=== PATIENT | female | born 1950 | race Caucasian/White ===

== ENCOUNTER → 2018-05-02 | Outpatient (CLI) | payer OTHER ==
[~2018-05-02] MED LIST: ADVAIR 250-501 EACH INH; ALDACTONE100 MG PO; ALDACTONE50 MG PO; AMBIEN 5 MG TABL5 M1 PO; ATIVAN1 MG PO; B12INJ IM; CHILDREN'S100 MG/5 M PER TUBE; CLONAZEPAM 1 MG1 M1 PO; DILAUDID 2 MG TA2 MG PO; DIPHENHIST12.5 MG/5 PER TUBE; DIPHENOXYLATE/ATROPI PO; FLAGYL500 MG PO; FUROSEMIDE 20 M20 MG PER TUBE; GEMFIBROZIL 60600 MG PER TUBE; LASIX 80 MG TAB80 MG PO; LEVOTHYROXINE 0.1 MG PO; LIDODERM 5%1 PATC1 TRANSDERM; MOTRIN IB200 M1 PO; NORCO 5-325 TA1 EAC1 PO; OMEPRAZOLE 20 M20 M1 PO; PAXIL10 MG; PERCOCET 5-3251 EACH PO; POTASSIUM20 PER TUBE; PROBIOTIC1 EAC1 PO; REGLAN 5 MG TAB5 MG PO; SYNTHROID25 MCG PO; TRANSDERM-SCO1 PATC1 TD; TRANSDERM-SCOP1 EACH TD; TRAZODONE HCL100 MG PO; VITAMIN B-1100 M1 PO; VITAMIN D1000 UNI1 PO; VIVELLE-DOT1 EAC1 TD; ZOLOFT50 MG PO
--- NOTE | 2018-05-02 15:55 | 2DMMODE ---
[place] [address] 2 D/M-MODE ECHOCARDIOGRAM Name: AMY HAQUE Room: [facility]#: [id number] Admission: 05/02/18 Attend Phys: Petros Armenta MD Discharge: Date of : 52 Date of Service: 05/02/18 1554 Report #: [id number] THIS REPORT FOR: //name// APPROVED REPORT Study performed: 05/02/2018 14:08:10 EXAM: Comprehensive 2D, Doppler, and color-flow Echocardiogram Patient Location: Out-Patient Status: routine BSA: 1.93 HR: 86 bpm BP: 102/62 mmHg Other Information Study Quality: Fair Technically limited study due to Ribs close together. Indications Dyspnea 2D Dimensions IVSd: 10.84 (7-11mm) LVOT Diam: 20.70 (18-24mm) LVDd: 42.28 mm PWd: 9.59 (7-11mm) Ascending Ao: 33.39 (22-36mm) LVDs: 27.65 (25-40mm) Aortic Root: 22.56 mm Volumes Left Atrial Volume (Systole) LA ESV Index: 14.00 mL/m2 Aortic Valve AoV Peak Rafa.: 1.27 m/s AO Peak Gr.: 6.46 mmHg LVOT Max P.64 mmHg AO Mean Gr.: 3.16 mmHg LVOT Mean P.86 mmHg LVOT Max V: 0.95 m/s AO V2 VTI: 22.42 cm LVOT Mean V: 0.62 m/s JANEY (VTI): 2.59 cm2 LVOT V1 VTI: 17.27 cm Mitral Valve E/A Ratio: 0.85 MV Decel. Time: 296.29 [place] [address] 2 D/M-MODE ECHOCARDIOGRAM Name: AMY HAQUE Room: [facility]#: [id number] Admission: 05/02/18 Attend Phys: Petros Armenta MD Discharge: Date of : 52 Date of Service: 05/02/18 1554 Report #: [id number] MV E Max Rafa.: 0.60 m/s MV PHT: 85.92 ms MVA (PHT): 2.56 cm2 TDI E/Lateral E': 8.57 E/Medial E': 6.67 Medial E' Rafa.: 0.09 m/s Lateral E' Rafa.: 0.07 m/s Pulmonary Valve PV Peak Rafa.: 1.02 m/s PV Peak Gr.: 4.15 mmHg Tricuspid Valve RAP Estimate: 5.00 mmHg TR Peak Gr.: 21.91 mmHg RVSP: 26.91 mmHg PA Pressure: 26.91 mmHg Left Ventricle The left ventricle is normal size. There is normal LV segmental wall motion. There is normal left ventricular wall thickness. Left ventricular systolic function is normal. The left ventricular ejection fraction is within the normal range. LVEF is 55-60%. Right Ventricle The right ventricle is normal size. The right ventricular systolic function is normal. Atria The left atrium size is normal. The right atrium size is normal. Aortic Valve The aortic valve is normal in structure. No aortic regurgitation is present. There is no aortic valvular stenosis. Mitral Valve The mitral valve is normal in structure. There is no mitral valve regurgitation noted. No evidence of mitral valve stenosis. Tricuspid Valve The tricuspid valve is normal in structure. Mild tricuspid regurgitation. Pulmonic Valve The pulmonary valve is normal in structure. There is no pulmonic [place] [address] 2 D/M-MODE ECHOCARDIOGRAM Name: REYES GONSALVESAMY Room: [facility]#: [id number] Admission: 05/02/18 Attend Phys: Petros Armenta MD Discharge: Date of : 52 Date of Service: 05/02/18 1554 Report #: [id number] Great Vessels The aortic root is normal in size. IVC is normal in size and collapses >50% with inspiration. Pericardium There is no pericardial effusion. <Conclusion> The left ventricle is normal size. There is normal left ventricular wall thickness. Left ventricular systolic function is normal. The left ventricular ejection fraction is within the normal range. LVEF is 55-60%. The right ventricle is normal size. The left atrium size is normal. The aortic valve is normal in structure. The mitral valve is normal in structure. The tricuspid valve is normal in structure. IVC is normal in size and collapses >50% with inspiration. There is no pericardial effusion. There is normal LV segmental wall motion. <ELECTRONICALLY SIGNED> By: Serge Wesley MD, FACC 05/02/18 1554 1554 1554 Serge Wesley MD, FACC /INF
== END ==
LOC: M.CRD 13:45
DX: J98.4 Other disorders of lung (principal); R06.02 Shortness of breath; Z98.84 Bariatric surgery status

== ENCOUNTER → 2018-08-08 | Day surgery (SDC) | payer OTHER ==
[~2018-08-08] MED LIST changes: +BRINTELLIX20 MG PO; +DUREZOL5 ML OPHTHALMIC; +ETODOLAC 400 M400 M1 PO; +ILEVRO1.7 ML OPHTHALMIC; +LYRICA 50 MG50 MG PO; +MAGNESIUM250 M1 PO; +METHENAMINE1 GM PER TUBE; +NYSTATIN100000 UNI SW&SWALLOW; +OCUFLOX5 ML OPHTHALMIC; +ONDANSETRON HCL4 M2 PO; +POTASSIUM CHLORIDE PER TUBE; +PROTONIX40 M1 PO; +SINGULAIR 10 MG10 M1 PO; +SYNTHROID88 MCG PO; +VENTOLIN HFA 1818 GM INH; +VITAMIN D50000 UNIT PO; +XANAX1 MG PO
--- NOTE | ~2018-08-08 | PROC ---
[facility] [address] [place] [address] PROCEDURE REPORT Name: AMY HAQUE Room: [facility].R.#: [id number] Admission: 08/08/18 Attend Phys: Rob Delacruz MD Discharge: Date of : 52 Report #: [id number] THIS REPORT FOR: //name// For GI report, please see the Provation report in Perceptive 7 content. By: [facility] Records Staff SYDNI /GAY
[2018-08-08 09:17] LABS: HEMATOCRIT 36.6 % (37.0-47.0); HEMOGLOBIN 11.9 gm/dL (12.0-15.0); MCH 29.2 pg (26.0-34.0); MCHC 32.5 g/dL (28.0-37.0); MCV 89.9 fL (80.0-100.0); MPV 9.8 fl. (7.2-11.1); RBC 4.07 mil/uL (4.20-5.00); RDW-CV 15.4 % (10.5-14.5); WBC 6.5 thou/uL (4.0-11.0)
[2018-08-08 09:28] LABS: ALBUMIN 3.1 g/dL (3.4-5.0); CALCIUM 8.5 mg/dL (8.5-10.1); CREATININE 1.9 mg/dL (0.6-1.3); POTASSIUM 4.1 mmol/L (3.5-5.1); TOTAL BILIRUBIN 0.6 mg/dL (<0.1-1.0); TOTAL PROTEIN 7.6 g/dL (6.4-8.2)
--- NOTE | 2018-08-08 13:14 | EKG ---
[place] [address] ELECTROCARDIOGRAM REPORT Name: AMY HAQUE Room: [facility]#: [id number] Admission: 08/08/18 Attend Phys: Rob Delacruz MD Discharge: Date of : 52 Report #: [id number] THIS REPORT FOR: //name// [facility] Test Date: 2018-08-08 Test Time: 09:14:04 Pat Name: AMY GONSALVES Department: Room: Gender: F [employer]: : 1950 Requested By: Rob Delacruz Order Number: [id number] Reading MD: Derik Alex Measurements Intervals [place] Rate: 63 P: 69 [place]: 189 QRS: 14 QRSD: 103 T: 57 QT: 413 QTc: 423 Interpretive Statements Sinus rhythm Probable left atrial enlargement Compared to ECG 02/11/2016 13:03:46 T-wave abnormality no longer present Electronically Signed On 08-08-2018 13:14:16 CDT by Derik Alex [email or web address] <ELECTRONICALLY SIGNED> By: Derik Alex MD, [facility] 08/08/18 1314 3 Derik Alex MD, [facility] /EPI
== END | disposition home or self-care (01) ==
LOC: M.SUR 08:52
PROVIDERS: Internal Medicine Gastroenterology
DX: K94.23 Gastrostomy malfunction (principal); K21.9 Gastro-esophageal reflux disease without esophagitis; K31.89 Other diseases of stomach and duodenum; E03.9 Hypothyroidism, unspecified; J45.909 Unspecified asthma, uncomplicated; F32.9 Major depressive disorder, single episode, unspecified; Z98.84 Bariatric surgery status; Z98.890 Other specified postprocedural states; Z79.899 Other long term (current) drug therapy; Z91.041 Radiographic dye allergy status; Z88.6 Allergy status to analgesic agent; Z88.8 Allergy status to other drugs, medicaments and biological substances

== ENCOUNTER 2018-09-03 10:15 | Inpatient (IN) | payer OTHER ==
[~2018-09-03] VITALS: Ht 177.8 cm; Wt 85.7 kg
--- NOTE | ~2018-09-03 | PROC ---
[address] [address] PROCEDURE REPORT Name: AMY HAQUE Room: [address] IN M.R.#: [id number] Admission: 09/03/18 Attend Phys: Olaf Salinas MD Discharge: 09/10/18 Date of : 52 Report #: [id number] THIS REPORT FOR: //name// CC: Olaf Baum DO DATE OF SERVICE: 09/05/2018 REFERRING PHYSICIAN: Dr. Olaf Salinas. PROCEDURE PERFORMED: Gastrostomy tube replacement. SEDATION USED: None. SPECIMEN RETRIEVED: One 20-Macanese x 1.7 cm NATALI-CHONG low-profile gastrostomy tube. INDICATIONS: The patient is a pleasant 68-year-old white female who was admitted to hospital with a partial small-bowel obstruction likely related to adhesions, who has had issues with her existing gastrostomy tube. Her existing gastrostomy tube appears to be too tight and it measures 20-Macanese x 1.7 cm. She is having some problems with induration and irritation around the outside of the tube and for this reason, she is now here for replacement of the tube with a new tube. Since [place] did not have any low-profile gastrostomy tubes, I brought a measuring device to determine the length of an acceptably low-profile gastrostomy tube. DESCRIPTION OF PROCEDURE: The procedure was performed at the patient's bedside. I deflated the balloon from the 20-Macanese x 1.7 cm existing low-profile gastrostomy tube and then used a measuring device to determine the length of an acceptable low-profile gastrostomy tube. I placed a measuring device through the stoma, inflated the balloon with 6 mL and then measured from the inside to the outside in the supine and semi-recumbent position. It appeared that a 2.5 cm tube will be an acceptable length. However, we do not have that size. Since I did not want to place the tube that was previously in place back into place, I then just placed a 20-Macanese balloon replacement tube through the existing stoma to keep it open. I will procure the correct size tube tomorrow and place it through existing stoma tomorrow at her bedside. She did not need an upper endoscopy to replace this tube. IMPRESSION: [place] [address] PROCEDURE REPORT Name: AMY HAQUE Room: [address] IN .R.#: [id number] Admission: 09/03/18 Attend Phys: Olaf Salinas MD Discharge: 09/10/18 Date of : 52 Report #: [id number] 1. Successful removal of a 20-Macanese x 1.7 cm low-profile gastrostomy tube. 2. Measuring device used to determine length of an acceptable low-profile gastrostomy tube and it appears that 20-Macanese x 2.5 cm tube will be acceptable. 3. Successful placement of a 20-Macanese balloon replacement tube through the existing stoma. RECOMMENDATIONS: 1. I will procure the correct size tube tomorrow and bring it and place it tomorrow through existing stoma. 2. Okay to advance the patient's diet to a soft diet as tolerated for partial small-bowel obstruction. I have discussed these plans with the patient as well as her and they are agreeable to the same. By: [id number] Diaz DO /priscila
--- NOTE | ~2018-09-03 | PROC ---
[address] [address] PROCEDURE REPORT Name: AMY HAQUE Room: [address] IN M.R.#: [id number] Admission: 09/03/18 Attend Phys: Olaf Salinas MD Discharge: 09/10/18 Date of : 52 Report #: [id number] THIS REPORT FOR: //name// CC: Olaf Baum DO DATE OF SERVICE: 09/06/2018 REFERRING PHYSICIAN: Olaf Salinas MD. PROCEDURE PERFORMED: Removal of 20-Guatemalan balloon replacement tube followed by placement of a 20-Guatemalan x 2.5 cm NATALI-CHONG low profile gastrostomy tube. SEDATION USED: None. SPECIMEN RETRIEVED: One 20-Guatemalan balloon replacement tube. INDICATIONS: The patient is a pleasant 68-year-old white female who is currently admitted to hospital with partial small-bowel obstruction and she was having difficulties with her existing low profile button PEG. It was actually removed yesterday and in place of it, a 20-Guatemalan balloon replacement tube was placed and secured into position. I used a measuring device prior to placement of the same and determined that a 20-Guatemalan x 2.5 cm low profile button PEG would work further. She is now here for replacement of the same. Once a 20-Guatemalan balloon replacement tube was removed and the balloon deflated, 20-Guatemalan x 2.5 cm NATALI-CHONG low profile gastrostomy tube was placed through existing stoma and the balloon was inflated with 6 mL. It appeared to be tight enough and there did not appear to be any issues related to the same. She tolerated the procedure without apparent complication. IMPRESSION: 1. Successful removal of 20-Guatemalan balloon replacement tube. 2. Successful placement of 20-Guatemalan x 2.5 cm NATALI-CHONG low profile gastrostomy tube through the existing stoma without complication. RECOMMENDATIONS: 1. Begin using the tube once she feels if she can tolerate feedings. 2. The patient states she has postprandial abdominal fullness after trying to eat yesterday and for this reason, I have recommended she undergo a noncontrast CT scan of the abdomen and pelvis to better evaluate her small bowel. I do not think she would be able to drink anything for small [place] [address] PROCEDURE REPORT Name: AMY HAQUE Room: [address] IN ..#: [id number] Admission: 09/03/18 Attend Phys: Olaf Salinas MD Discharge: 09/10/18 Date of : 52 Report #: [id number] and I did not want to add anything to her GI tract in case she has evidence of continuous small-bowel obstruction. 3. So far she has made without having to have an NG tube placed as I previously noted. If it is likely that she needs an NG tube, it will likely need to be placed endoscopically because of her altered anatomy. 4. We will order a CT scan today and evaluate the findings from the same. 5. With regards to gastrostomy tube replacement, all future gastrostomy tube placements should be scheduled at [facility] where they have a low profile gastrostomy tubes and we will need to make sure that they have a 20-Guatemalan x 2.5 cm low profile NATALI-CHONG gastrostomy tube in stock before scheduling for replacement of the same. I have discussed this with the patient as well and she is agreeable to the same. By: [id number] Diaz DO /priscila
[2018-09-03 10:15] VITALS: BP 143/71
[~2018-09-03 10:15] MED LIST changes: -LIDODERM 5%1 PATC1 TRANSDERM; +Lidoderm 5% Patch TRANSDERM
[2018-09-03] MEDS ORDERED: LOMOTIL TABLET1 EACH PO (10:36)
[2018-09-03] MEDS ORDERED: ESZOPICLONE3 MG PO (10:36)
[2018-09-03] MEDS ORDERED: MEDROLDOSEPACK PO (10:37)
[2018-09-03] MEDS ORDERED: PROBIOTIC1 EAC1 PO (10:37)
[2018-09-03] MEDS ORDERED: OSMOLITE PO (10:37)
[2018-09-03 11:00] LABS: URINE BLOOD NEGATIVE (Negative); URINE CLARITY CLEAR; URINE COLOR YELLOW; URINE GLUCOSE-RANDOM NEGATIVE (Negative); URINE KETONES NEGATIVE (Negative); URINE LEUKOCYTES-REFLEX NEGATIVE (Negative); URINE NITRITE-REFLEX NEGATIVE (Negative); URINE PROTEIN NEGATIVE (Negative); URINE UROBILINOGEN 0.2 E.U./dl (0.2-1.0)
[2018-09-03 11:02] LABS: ICTOTEST (BILI CONFIRMATORY) Positive (Negative); URINE BILIRUBIN 3+ (Negative)
[2018-09-03 11:03] LABS: HEMATOCRIT 41.2 % (37.0-47.0); HEMOGLOBIN 13.7 gm/dL (12.0-15.0); MCH 29.8 pg (26.0-34.0); MCHC 33.2 g/dL (28.0-37.0); MCV 89.7 fL (80.0-100.0); MPV 10.3 fl. (7.2-11.1); NUCLEATED RBCS 0 /100WBC; PLATELET COUNT* 221 thou/uL (150-400); RBC 4.59 mil/uL (4.20-5.00); RDW-CV 15.1 % (10.5-14.5); WBC 10.3 thou/uL (4.0-11.0)
[2018-09-03 11:09] LABS: PROTIME 10.3 Seconds (9.20-11.50)
[2018-09-03 11:10] LABS: ANION GAP 13 mmol/L (7-16); BUN 49 mg/dL (7-18); CALCIUM 8.4 mg/dL (8.5-10.1); CHLORIDE 103 mmol/L (98-107); CO2 27 mmol/L (21-32); GLUCOSE 148 mg/dL (70-99); POTASSIUM 3.9 mmol/L (3.5-5.1); SODIUM 143 mmol/L (136-145)
[2018-09-03 11:21] LABS: ALBUMIN 3.5 g/dL (3.4-5.0); ALKALINE PHOSPHATASE 117 U/L (46-116); LIPASE 1668 U/L (73-393); MAGNESIUM 2.3 mg/dL (1.8-2.4); NT-PRO BRAIN NAT PEPTIDE 102 pg/mL (<300); SGOT 17 U/L (15-37); SGPT 13 U/L (30-65); TOTAL BILIRUBIN 0.8 mg/dL (<0.1-1.0); TOTAL PROTEIN 8.1 g/dL (6.4-8.2); TROPONIN-I LEVEL <0.06 ng/mL (<0.06)
[2018-09-03 11:22] LABS: ABSOLUTE LYMPHOCYTES 0.8 thou/uL (0.8-5.3); ABSOLUTE MONOCYTES 0.2 thou/uL (0.0-1.2); ABSOLUTE NEUTROPHILS 9.3 thou/uL (1.6-8.1)
[2018-09-03 11:23] LABS: ANISOCYTOSIS 1+; PLATELET ESTIMATE ADEQUATE; POIKILOCYTOSIS 1+
[2018-09-03 13:39] LABS: AMP/METHAMP Negative (Negative); BARBITURATES Negative (Negative); BENZODIAZEPINES POSITIVE (Negative); COCAINE Negative (Negative); METHADONE Negative (Negative); OPIATES POSITIVE (Negative); PCP Negative (Negative); THC POSITIVE (Negative)
[2018-09-03 14:00] VITALS: BP 127/50
[2018-09-03 14:08] VITALS: BP 129/64
--- NOTE | 2018-09-03 14:30 | NUR ---
ER ADMIT TO ROOM 208 VIA CART. ADMISSION ASSESSMENT COMPTETE, DEFER TO COMPUTER CHARTING. 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 DENIES PAIN, NAUSEA OR ANY DISCOMFORT AT THIS TIME. ORIENTED TO ROOM/CALL LIGHT AND INTRODUCED TO PLAN OF CARE ALONG WITH SAFETY - CALLING FOR ASSIST WHEN GETTING OUT OF BED - VERBALIZED UNDERSTANDING. AT BEDSIDE. WILL MONITOR.
--- NOTE | 2018-09-03 17:49 | NUR ---
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 DROWSY BUT ORIENTED. REMAINS NPO PER ORDERS, IV FLUIDS INFUSING. IN BED WITH HOB ELEVATED, CALL LIGHT WITHIN REACH. NO COMPLAINTS OF CHEST PAIN OR NAUSEA AT THIS TIME. CALL LIGHT WITHIN REACH. WILL CONTINUE WITH PLAN OF CARE.
[2018-09-03 20:00] VITALS: BP 89/51
[2018-09-04 00:01] VITALS: BP 91/41
[2018-09-04 04:00] VITALS: BP 85/45
[2018-09-04 04:54] LABS: ABSOLUTE LYMPHOCYTES 0.7 thou/uL (0.8-5.3); ABSOLUTE MONOCYTES 0.6 thou/uL (0.0-1.2); ABSOLUTE NEUTROPHILS 6.6 thou/uL (1.6-8.1); BASOPHILS 0.2 %; HEMATOCRIT 30.7 % (37.0-47.0); LYMPHOCYTES 8.6 %; MCH 30.1 pg (26.0-34.0); MCHC 33.3 g/dL (28.0-37.0); MCV 90.3 fL (80.0-100.0); MONOCYTES 8.2 %; MPV 10.4 fl. (7.2-11.1); NUCLEATED RBCS 0 /100WBC; PLATELET COUNT* 154 thou/uL (150-400); RDW-CV 15.4 % (10.5-14.5); WBC 7.9 thou/uL (4.0-11.0)
[2018-09-04 05:01] LABS: CALCIUM 7.2 mg/dL (8.5-10.1); CREATININE 1.3 mg/dL (0.6-1.3); POTASSIUM 3.5 mmol/L (3.5-5.1)
[2018-09-04 05:12] LABS: HEMOGLOBIN 10.2 gm/dL (12.0-15.0)
--- NOTE | 2018-09-04 07:52 | NUR ---
ASSUMED PT CARE AT 1930. ASSESSMENT COMPLETED CHARTED. ABLE TO MAKE NEEDS KNOWN. UP WITH STANDBY ASSIST. C/O CRAMPING IN ABDOMIN, GAVE PRN PAIN MEDICATIONS NEEDED. VSS. FLUIDS INFUSING PER P.O. C/O NAUSEA. WILL CONTINUE TO MONITOR.
[2018-09-04 08:15] VITALS: BP 96/46
[2018-09-04 12:29] VITALS: BP 91/38
[2018-09-04 15:38] VITALS: BP 139/74
--- NOTE | 2018-09-04 16:27 | NUR ---
ASSUMED CARE OF PATIENT AT 0730. ALERT AND ORIENTED X 4. VITAL SIGNS STABLE ON 2L O2 NASAL CANULA. SINUS RHYTHM ON MONITOR. AFEBRILE. PERRLA. UP WITH STAND BY ASSIST. IV PATENT WITH FLUIDS INFUSING. PAIN BEING MANAGED WITH IV MEDICATION. DENIES NAUSEA AT THIS TIME. PATIENT MADE MED SURG STATUS TODAY. TOLERATING CLEAR LIQUIDS AT THIS TIME. TO BE NPO AFTER MIDNIGHT FOR PROCEDURE TOMORROW. FALL PRECAUTIONS IN PLACE AND BED ALARM ON. BED LOCKED AND IN LOWEST POSITION. HOURLY ROUNDS MAINTINED THROUGHOUT THE SHIFT. CALL LIGHT WITHIN REACH. NURSING WILL CONTINUE TO MONITOR.
[2018-09-04 20:00] VITALS: BP 114/83
[2018-09-05] VITALS: BP 84/35
[2018-09-05 05:21] LABS: PREALBUMIN 12.4 mg/dL (18.0-35.7)
[2018-09-05 05:43] LABS: ALBUMIN 2.3 g/dL (3.4-5.0); CALCIUM 7.7 mg/dL (8.5-10.1); POTASSIUM 3.4 mmol/L (3.5-5.1); TOTAL BILIRUBIN 0.4 mg/dL (<0.1-1.0); TOTAL PROTEIN 5.6 g/dL (6.4-8.2)
--- NOTE | 2018-09-05 05:48 | NUR ---
ASSUMED PT CARE AT 1930. ASSESSMENT COMPLETED CHARTED. ABLE TO MAKE NEEDS KNOWN. UP AD SIMON IN ROOM. C/O PAIN AND CRAMPING IN ABDOMEN, GAVE PRN PAIN MEDICATION NEEDED. NPO SINCE MIDNIGHT FOR NEW GTUBE TODAY. PT UNABLE TO TAKE MOST MEDICATIONS DUE TO DAMAGED ESOPHAGUS SO WAITING FOR GTUBE PLACEMENT TO GIVE MEDICATION THROUGH IT. BP LOW DUE TO PAIN MEDICATION AND RESTING IN BED MOST OF THE NIGHT. WILL CONTINUE TO MONITOR.
--- NOTE | 2018-09-05 07:15 | NUR ---
CHANGE OF SHIFT, BEDSIDE REPORT GIVEN PATIENT SEEN AT BEDSIDE, IN BED ASLEEP ASSUMJED PATIENT CARE
[2018-09-05 08:00] VITALS: BP 107/39
--- NOTE | 2018-09-05 11:06 | NUR ---
Pt is A&O. Resides at home with her ex , ex is Pt's caregiver. Pt is independent with ADLs, but ex does provide supervision as needed. Ex cooks and drives, Pt does have a sewer tapper. Pt has a peg tube. Pt has a walker and wc that she can use as needed. Hx of outpt therapy at [facility], Pt was current up until recently. [facility]x of [facility]. Hx of skilled at [facility]. Pt's goal is to return home at ne, unsure if she will resume outpt therapy or if she wants HH, Pt will discuss with Dr. Mendez.
--- NOTE | 2018-09-05 12:34 | EKG ---
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
[2018-09-05 16:00] VITALS: BP 95/43
[2018-09-05 20:40] VITALS: BP 128/85
[2018-09-06] VITALS: BP 89/48
[2018-09-06 05:41] LABS: HEMATOCRIT 31.3 % (37.0-47.0); HEMOGLOBIN 10.3 gm/dL (12.0-15.0); MCH 29.8 pg (26.0-34.0); MCHC 32.9 g/dL (28.0-37.0); MCV 90.5 fL (80.0-100.0); RBC 3.46 mil/uL (4.20-5.00); RDW-CV 14.6 % (10.5-14.5); WBC 6.2 thou/uL (4.0-11.0)
[2018-09-06 06:11] LABS: ALBUMIN 2.5 g/dL (3.4-5.0); CALCIUM 8.1 mg/dL (8.5-10.1); MAGNESIUM 1.8 mg/dL (1.8-2.4); POTASSIUM 3.2 mmol/L (3.5-5.1); TOTAL BILIRUBIN 0.4 mg/dL (<0.1-1.0); TOTAL PROTEIN 6.2 g/dL (6.4-8.2)
[2018-09-06 07:40] VITALS: BP 102/49
--- NOTE | 2018-09-06 08:02 | NUR ---
PATIENT HAS SLEPT OFF AND ON DURING THE NIGHT, BUT RESTLESS AT TIMES. VSS ON RA, ALTHOUGH BP LOW DURING THE NIGHT AFTER GIVEN FENTANYL AND MEDS. FENTANYL AND DILAUDID WERE HELD D/T LOW BP. BP 110/48 THIS AM. MEDICATIONS CRUSHED AND GIVEN VIA PEG TUBE. NEW IV INSERTED IN RIGHT UPPER ARM-D5 1/2 NS @ 50ML/HR. PATIENT INSTRUCTED TO USE CALL LIGHT WHEN NEEDING ASSISTANCE. HOURLY ROUNDS MADE. WILL CONTINUE WITH PLAN OF CARE AND NURSING TO MONITOR.
[2018-09-06 15:10] VITALS: BP 110/60
--- NOTE | 2018-09-06 16:57 | NUR ---
ASSUMED CARE OF PATIENT AT APPROX 0730. ALERT AND ORIENTED X4. ASSESSMENT COMPLETED AND CHARTED. VSS ON ROOM AIR AIR. FLUIDS INFUSED ORDERED THROUGHOUT SHIFT. PAIN HAS BEEN MANAGED WITH IV FENTANYL. PILLS CRUSHED AND ADMINISTERED THROUGH PEG TUBE. PATIENT HAVING FOOD ORALLY WITHOUT ISSUE THIS SHIFT. DR HU CHANGED PEG TUBE AT BEDSIDE THIS MORNING. PATIENT UP WITH THERAPY TODAY AND PROGRESSED TOWARD GOALS. UP AD SIMON IN THE ROOM. CALL LIGHT WITHIN REACH, HOURLY ROUNDS COMPLETED, NURSING WILL CONTINUE TO MONITOR.
[2018-09-07 05:13] LABS: CALCIUM 8.2 mg/dL (8.5-10.1); CREATININE 1.3 mg/dL (0.6-1.3); MAGNESIUM 1.7 mg/dL (1.8-2.4); POTASSIUM 3.6 mmol/L (3.5-5.1)
--- NOTE | 2018-09-07 06:12 | NUR ---
PT REMAINED ALERT AND ORIENTED. VITALS, SpO2 STABLE RA. PO MEDS CRUSHED AND GIVEN THROUGH PEG TUBE. STOMA SITE CLEAN AND INTACT. PAIN CONTROLLED WITH DILAUDID AND FENTANYL. ZOFRAN GIVEN PER PT REQUEST. ELECTROLYTE REPLACEMENT IN PROGRESS. PT STATED HAVING LOOSE STOOL OVER NIGHT. NOT SEEN BY NURSING. WILL CONTINUE TO MONITOR.
[2018-09-07 09:00] VITALS: BP 100/60
[2018-09-07 09:04] LABS: CALCIUM 7.8 mg/dL (8.5-10.1); CREATININE 1.4 mg/dL (0.6-1.3); MAGNESIUM 1.8 mg/dL (1.8-2.4); POTASSIUM 3.2 mmol/L (3.5-5.1)
[2018-09-07 15:30] VITALS: BP 106/52
--- NOTE | 2018-09-07 17:04 | NUR ---
pt remained alert and oriented. pt resting in room. zofran and pain meds given as ordered. tube feedings restarted. pt controlling rate and amount due to fear of going to much to fast. fall risk precautions in place. hourly rounding completed. will continue to monitor.
[2018-09-07 21:30] VITALS: BP 107/63
--- NOTE | 2018-09-08 05:15 | NUR ---
PT REMAINED ALERT AND ORIENTED. VITALS STABLE RA. MEDS GIVEN ORDERED THROUGH PEG TUBE. RATE STARTED AT 15 ML/HR BY DAYSHIFT AND INCREASED OVER NIGHT UP TO 50 ML/HR PER PT REQUEST AND SHE TOLERATED. NEW IV INSERTED DUE TO LEAKAGE. ELECTROLYTE REPLACEMENT IN PROGRESS. PT AMBULATED THE [facility] AT [facility]. WILL CONTINUE TO MONITOR.
[2018-09-08 08:00] VITALS: BP 99/50
[2018-09-08 09:02] LABS: MAGNESIUM 1.8 mg/dL (1.8-2.4)
[2018-09-08 09:04] LABS: POTASSIUM 4.2 mmol/L (3.5-5.1)
[2018-09-08 16:00] VITALS: BP 151/76
--- NOTE | 2018-09-08 18:36 | NUR ---
PT A&Ox4. VITALS STABLE. ON RA. PAIN CONTROLLED WITH DILAUDID. NAUSEA CONTROLLED WITH ZOFRAN. IV PATENT, SL. FEEDING TUBING STARTING AT 1900. UP AD SIMON. CALL LIGHT WITHIN PLACE. WILL CONTINUE TO MONITOR.
[2018-09-08 20:20] VITALS: BP 105/60
[2018-09-09 03:45] LABS: HEMATOCRIT 28.8 % (37.0-47.0); HEMOGLOBIN 9.8 gm/dL (12.0-15.0); MCH 30.3 pg (26.0-34.0); MCHC 33.9 g/dL (28.0-37.0); MCV 89.3 fL (80.0-100.0); MPV 10.1 fl. (7.2-11.1); RBC 3.22 mil/uL (4.20-5.00); RDW-CV 14.9 % (10.5-14.5); WBC 4.5 thou/uL (4.0-11.0)
[2018-09-09 04:03] LABS: CALCIUM 8.4 mg/dL (8.5-10.1); CREATININE 1.5 mg/dL (0.6-1.3); POTASSIUM 4.4 mmol/L (3.5-5.1)
--- NOTE | 2018-09-09 07:30 | NUR ---
Alert and oriented x 4. She has been getting her meds crushed through pegtube. She is tolerating fiber restricted diet. She has slept intermittenly. Pain controlled well with oral dilaudid.
[2018-09-09 08:00] VITALS: BP 108/39
--- NOTE | 2018-09-09 13:46 | NUR ---
SPOKE WITH PT.BRIEFLY SHE HAS BEEN NAUSEATED. STATED SHE DID NOT FEEL SHE WOULD HAVE DISCHARGE NEEDS.
[2018-09-09 15:32] VITALS: BP 129/83
--- NOTE | 2018-09-09 16:30 | NUR ---
ASSUMED CARE OF PATIENT AT 1100. ALERT AND ORIENTED X4. ASSESSMENT CHARTED BY FARHAD COPE ON ROOM AIR. PAIN MANAGED WITH ORAL DILAUDID. PATIENT HAVING SOME COMPLAINTS OF NAUSEA DURING SMALL BOWEL FOLLOW THROUGH SERIES, WHICH SHOWS RESOLVING SBO. PATIENT UP WITH THERAPI AND PROGRESSING TOWARD GOALS. PATIENT IS CLEARED TO GO HOME, DISCUSSION WITH PATIENT AND ABOUT MAKING PREPARATION TO DISCHAGE. HOURLY ROUNDS COMPLETED, CALL LIGHT WITHIN REACH, NURSING WILL CONTINUE TO MONITOR.
[2018-09-09 20:00] VITALS: BP 124/57
[2018-09-10 08:25] VITALS: BP 117/56
--- NOTE | 2018-09-10 12:32 | CON ---
[facility] [address] [place] [address] CONSULTATION Name: AMY HAQUE Room: [address] M.R.#: [id number] Admission: 09/03/18 Attend Phys: Kimmy Salinas MD Discharge: Date of : 52 Report #: [id number] THIS REPORT FOR: //name// CC: KIMMY Baum DO DATE OF SERVICE: 09/04/2018 REFERRING PHYSICIAN: Kimmy Salinas M.D. REASON FOR CONSULTATION: Abdominal pain. IMPRESSION: 1. Abdominal pain associated with nausea, vomiting, diarrhea and abnormal CAT scan, compatible with a small bowel obstruction - suspect it is related to adhesions due to her history of multiple abdominal surgeries. 2. Elevated lipase, without any evidence of pancreatitis on CT scan - suspect false positive lipase due to small-bowel obstruction. 3. PEG tube malfunction with the patient's existing low-profile button PEG being too tight over her skin, causing irritation around the outside. 4. History of chronic tube feedings via a low-profile button PEG due to issues that the patient has with dysphagia. RECOMMENDATIONS: 1. I agree with the attempt for nonoperative management of her partial small-bowel obstruction. If, however, she gets into trouble with tolerating food, she may need to have an NG tube placed. I suspect this will require an EGD to place the tube due to her altered upper GI tract anatomy and I would not want to do so for the patient. 2. Her current gastrostomy tube appears to be too tight over her skin, so I will replace the existing gastrostomy tube with a longer tube and I will have to get this from [facility]'s GI lab. For future reference, future changes of this tube will need to be arranged to be done at [facility] GI lab, as we do not have any low-profile gastrostomy tubes here at [facility]. I have discussed these plans with the patient as well as her and they are agreeable to the same. HISTORY OF PRESENT ILLNESS: The patient is a pleasant 68-year-old white female, well known to me, who has had history of remote Kenneth shunt with reversal of the same and has had to be chronically fed through a tube mostly at night, with 4 cans of Fibersource through the night through a tube to her low-profile button tube. She was admitted to the hospital, however, with complaints of abdominal pain associated with nausea, vomiting and was seen through [place] [address] CONSULTATION Name: AMY HAQUE Room: [address] M.R.#: [id number] Admission: 09/03/18 Attend Phys: Kimmy Salinas MD Discharge: Date of : 52 Report #: [id number] with findings on CT scan of a probable small-bowel obstruction. She has not had any further nausea or vomiting at this point in time and is actually passing gas and some stool. She has already been seen in consultation by Surgery, who recommended nonoperative management in a hope that this will work for her. She is admitted to the hospital for further evaluation and treatment. ALLERGIES: HER ALLERGIES ARE MULTIPLE AND INCLUDE PERCOCET, CODEINE, IV CONTRAST DYE, HYDROCODONE, MANNITOL, FLAGYL, MORPHINE, OXYCODONE, TAPE AND RECLAST. MEDICATIONS: Include ofloxacin eyedrops as well as Ilevro eyedrops. She takes Lomotil p.r.n., nutritional supplement, probiotic, Advair, trazodone, furosemide, spironolactone, gemfibrozil, chronic hydromorphone 2 mg up to 3 times daily, estradiol, vitamin B12, levothyroxine, alprazolam, Etodolac, methenamine, ondansetron, vitamin D3, albuterol, pregabalin, pantoprazole, montelukast, Trintellix, magnesium and some another eyedrop called Durezol. PAST MEDICAL AND SURGICAL HISTORY: Remarkable for chronic arthritis and chronic pain syndrome. She has history of hypothyroidism, hyperlipidemia, anxiety and depression. She has had previous gastric bypass surgeries on her abdomen. She has a chronic indwelling low-profile NATALI-CHONG button PEG. She has had hemorrhoidectomy, kidney stone removal. SOCIAL HISTORY: She does not smoke; occasionally drinks alcohol. FAMILY HISTORY: Negative. PHYSICAL EXAMINATION: GENERAL: Revealed a 68-year-old white female, who is awake and alert. CARDIOPULMONARY EXAMINATION: Revealed a regular rate and rhythm. LUNGS: Clear. ABDOMEN: Soft. Her existing gastrostomy tube was certainly tight over her skin. There was some irritation on the outside, mostly maceration secondary to the tight-fitting tube. Her abdomen is not distended. She is passing gas and has normal bowel sounds. LABORATORY DATA: Her laboratory tests revealed white count of 7.9, hemoglobin 10.2, platelet count 154,000, MCV is 90.3 and RDW is 15.4. Her sodium is 144, potassium 3.5, chloride 108, bicarbonate 25, BUN 32 and creatinine 1.3. Her total bilirubin is 0.8, alkaline phosphatase 117, AST is 17 and ALT is 13. Albumin is 3.5. Her lipase on admission was 1668 and today, it is 91. CT scan of the abdomen and pelvis was reviewed from 09/03/2018, which revealed a normal-appearing liver. Gallbladder is absent. Her spleen, pancreas, adrenal glands and kidneys are normal. She has postoperative changes from previous gastric bypass with a gastrostomy tube noted within the stomach[place] [address] CONSULTATION Name: AMY HAQUE ASAF Room: [address] IN [facility]#: [id number] Admission: 09/03/18 Attend Phys: Kimmy Salinas MD Discharge: Date of : 52 Report #: [id number] moderate amount of debris within the stomach as well as small bowel loops proximally, which is significantly distended with air and debris. The distal small bowel appears to be decompressed. The colon was still decompressed as well. There were no inflammatory changes noted. She has had previous hysterectomy as well. DISCUSSION: At the present time, the patient appears to be doing well even without the need for an NG tube for partial small-bowel obstruction. We will continue to follow the patient while she is in the hospital and we will replace her gastrostomy tube tomorrow with a less tight low-profile button PEG. <ELECTRONICALLY SIGNED> By: Tyson Diaz DO 09/10/18 1232 1518 DO clarisa Reyes
[2018-09-10 12:51] VITALS: BP 117/56
--- NOTE | 2018-09-10 14:15 | NUR ---
0700 ASSUMED CARE OF PT. PT IN ROOM RESTING. AM MEDICATION GIVEN TO PT AND HER TO CRUSH AND ADMINISTER VIA PEG TUBE. PT IS A&OX4 AND ABLE TO MAKE NEEDS KNOW. EXPRESSES THAT SHE IS READY TO LEAVE AND GO HOME TODAY. PT HERE AND WILL TAKE HER HOME. HAS NO OTHER CONCERNS AT THIS TIME. WILL CONT TO MONITOR CALL LIGHT IN REACH
--- NOTE | 2018-09-10 14:20 | NUR ---
5479 PT DISCHARGED FROM ROOM 111 TO HOME VIA WHEELCHAIR ACCOMPANIED BY HER . TRANSPORTED BY PERSONAL VEHICLE. PT ABLE TO SELF TRANSFER TO THE VEHICLE.
== END 2018-09-10 13:45 | disposition home or self-care (01) | DRG 326 ==
LOC: M.ERS 10:15 → M.TBA-ER 12:02 → M.2W 12:02 → M.ORTHSURG 12:02 → M.2W 14:02 → M.ORTHSURG 09-06 12:24
PROVIDERS: Emergency Medicine Emergency Medical Services; Internal Medicine; Internal Medicine Gastroenterology; ADMIT Internal Medicine
PROC: 0DW63UZ Revision of Feeding Device in Stomach, Percutaneous Approach (ICD-10-PCS; principal; 2018-09-05)
PROC: 0DW64UZ Revision of Feeding Device in Stomach, Percutaneous Endoscopic Approach (ICD-10-PCS; 2018-09-06)
DX: K94.23 Gastrostomy malfunction (principal); J69.0 Pneumonitis due to inhalation of food and vomit; N17.0 Acute kidney failure with tubular necrosis; K85.90 Acute pancreatitis without necrosis or infection, unspecified; K56.609 Unspecified intestinal obstruction, unspecified as to partial versus complete obstruction; G93.40 Encephalopathy, unspecified; L03.311 Cellulitis of abdominal wall; K56.7 Ileus, unspecified; E03.9 Hypothyroidism, unspecified; I50.9 Heart failure, unspecified; Z77.22 Contact with and (suspected) exposure to environmental tobacco smoke (acute) (chronic); E86.9 Volume depletion, unspecified; F19.90 Other psychoactive substance use, unspecified, uncomplicated; G89.29 Other chronic pain; F32.9 Major depressive disorder, single episode, unspecified; Z90.710 Acquired absence of both cervix and uterus; Z87.442 Personal history of urinary calculi; Z88.8 Allergy status to other drugs, medicaments and biological substances; Z88.6 Allergy status to analgesic agent; Z95.1 Presence of aortocoronary bypass graft; Z91.041 Radiographic dye allergy status; Z90.49 Acquired absence of other specified parts of digestive tract; T40.2X5A Adverse effect of other opioids, initial encounter; Y92.89 Other specified places as the place of occurrence of the external cause

== ENCOUNTER → 2019-01-03 | Outpatient (CLI) | payer OTHER ==
[~2019-01-03] MED LIST changes: +ESZOPICLONE3 MG PO; +LOMOTIL TABLET1 EACH PO; +MEDROLDOSEPACK PO; +OSMOLITE PO
== END ==
LOC: M.NUC 11:49
DX: K59.00 Constipation, unspecified (principal); R11.2 Nausea with vomiting, unspecified; R14.0 Abdominal distension (gaseous)

== ENCOUNTER 2019-02-08 11:11 | Emergency (ER) | payer OTHER ==
[~2019-02-08] VITALS: Ht 180.3 cm; Wt 74.8 kg
[2019-02-08 12:28] LABS: HEMATOCRIT 40.4 % (37.0-47.0); HEMOGLOBIN 13.7 gm/dL (12.0-15.0); MCH 30.1 pg (26.0-34.0); MCHC 33.9 g/dL (28.0-37.0); MPV 9.8 fl. (7.2-11.1); NUCLEATED RBCS 0 /100WBC; PLATELET COUNT* 233 thou/uL (150-400); RBC 4.54 mil/uL (4.20-5.00); RDW-CV 15.3 % (10.5-14.5)
[2019-02-08 12:40] LABS: CALCIUM 9.6 mg/dL (8.5-10.1); CREATININE 1.4 mg/dL (0.6-1.3); POTASSIUM 3.6 mmol/L (3.5-5.1)
[2019-02-08 12:44] LABS: TOTAL BILIRUBIN 0.4 mg/dL (<0.1-1.0); TOTAL PROTEIN 8.4 g/dL (6.4-8.2)
[2019-02-08 12:57] LABS: ABSOLUTE LYMPHOCYTES 0.7 thou/uL (0.8-5.3); ABSOLUTE MONOCYTES 0.2 thou/uL (0.0-1.2); ABSOLUTE NEUTROPHILS 7.1 thou/uL (1.6-8.1)
[2019-02-08 12:58] LABS: MICROCYTES 1+
[2019-02-08 12:59] LABS: PLATELET ESTIMATE ADEQUATE; TOXIC GRANULATION 1+
[2019-02-08 13:12] LABS: URINE BILIRUBIN NEGATIVE (Negative); URINE BLOOD NEGATIVE (Negative); URINE CLARITY CLEAR; URINE COLOR YELLOW; URINE GLUCOSE-RANDOM NEGATIVE (Negative); URINE KETONES NEGATIVE (Negative); URINE LEUKOCYTES-REFLEX NEGATIVE (Negative); URINE NITRITE-REFLEX NEGATIVE (Negative); URINE PROTEIN NEGATIVE (Negative); URINE SPECIFIC GRAVITY 1.015 (1.005-1.030); URINE UROBILINOGEN 0.2 E.U./dl (0.2-1.0)
[2019-02-08] MEDS ORDERED: ONDANSETRON ODT4 MG PO (14:33)
[2019-02-08 15:41] VITALS: BP 119/75
== END 2019-02-08 15:42 | disposition home or self-care (01) ==
LOC: M.ERS 11:11
PROVIDERS: Physician Assistant
DX: R11.2 Nausea with vomiting, unspecified (principal); I50.9 Heart failure, unspecified; F32.9 Major depressive disorder, single episode, unspecified; Z88.6 Allergy status to analgesic agent; Z88.5 Allergy status to narcotic agent; Z91.041 Radiographic dye allergy status; Z88.8 Allergy status to other drugs, medicaments and biological substances; E03.9 Hypothyroidism, unspecified; Z90.710 Acquired absence of both cervix and uterus